=== PATIENT | male | born 1970 | race Caucasian/White ===

== ENCOUNTER 2021-09-10 09:14 | Emergency (ER) | payer SELFPAY ==
[2021-09-10 09:26] VITALS: BP 121/81; PULSE 81; TEMP 97.9; BMI 26.9
== END 2021-09-10 10:50 | disposition home or self-care (01) ==
LOC: JER 09:14
DX: H10.31 Unspecified acute conjunctivitis, right eye (principal)
CPT/HCPCS: 99283-25